=== PATIENT | male | born 1965 | race Two or more races ===

== ENCOUNTER 2021-08-31 00:04 | Emergency (ER) | payer OTHER ==
[~2021-08-31] VITALS: Ht 172.7 cm; Wt 79.4 kg
[2021-08-31] MEDS ORDERED: GLIMEPIRIDE4 M1 (00:20)
== END 2021-08-31 04:54 ==
LOC: ER 00:04
DX: U07.1 COVID-19 (principal); E11.9 Type 2 diabetes mellitus without complications; Z79.84 Long term (current) use of oral hypoglycemic drugs